=== PATIENT | male | born 1975 | race Caucasian/White ===

== ENCOUNTER 2016-12-16 09:20 | Emergency (ER) | payer OTHER ==
[~2016-12-16] VITALS: Ht 162.6 cm; Wt 86.5 kg
[2016-12-16 09:25] VITALS: Ht 162.6 cm; Wt 86.5 kg
--- NOTE | 2016-12-16 09:55 | ERD ---
ER Documentation Chief Complaint Date/Time DATE: 12/16/16 Chief Complaint Foreign body sensation right eye HPI The patient is a 41-year-old male who presents the Emergency Department with complaint of foreign body sensation to the right eye. The patient reports while at work on Saturday he was chopping some drywall when some debris flew into his eye. No discomfort at the time, but by the evening was experiencing a pulsating discomfort to the right eye with increased redness area by the next morning he noted increased redness of the eye, with mild photophobia and foreign body sensation and therefore presented to an cup machine operator at [facility] for evaluation. The patient reports that several more bodies noted in his right eye, one which was removed. The patient was then discharged home with a prescription for ciprofloxacin ophthalmic drops, and advised that he needs a repeat appointment in one week to remove the remaining foreign bodies. He denies any visual changes , diplopia, blurred vision or vision loss. Denies fevers, sweats, chills, nausea or vomiting. Denies any ocular discharge. Denies any periorbital swelling or erythema. Denies any pain with eye movement. Denies any restricted days. The patient denies any glasses or contact lens use. He was not wearing any protective lenses while working. The patient notes that he has been using the ciprofloxacin eyedrops as directed. No other complaints at this time. ROS All systems reviewed and are negative except as per history of present illness. Allergies Allergies: Coded Allergies: No Known Allergy (Unverified , 12/16/16) PMhx/Soc Medical and Surgical Hx: pt denies Medical Hx Hx Alcohol Use: No Hx Substance Use: No Hx Tobacco Use: No Physical Exam Vitals Vital Signs Date Time Temp Pulse Resp B/P Pulse Ox O2 Delivery O2 Flow Rate FiO2 12/16/16 09:25 98.1 56 18 132/74 97 Physical Exam GENERAL: Well-developed, well-nourished, male, in no acute distress. HEENT: Head is normocephalic, atraumatic. No scleral pallor or icterus. Pupils equal, round and reactive to light. Extraocular movements intact. No periorbital erythema or edema. No proptosis. No pain with eye movement. No restricted gaze. Negative Nicolasa sign. Normal pupil. Mild right photophobia. Visual acuity: OD 20/15, OS 20/25, OU 20/15. Irritation/mild injection of the right eye. Normal sclera/conjunctiva of left eye. No foreign bodies visualized on lid eversion. Moist mucous membranes. NECK: Supple. RESPIRATORY: Lungs are clear to auscultation bilaterally. Equal breath sounds. Normal expiratory effort. CARDIOVASCULAR: Regular rate and rhythm. S1 and S2 normal. GASTROINTESTINAL: Soft. Nondistended. BACK: No midline tenderness. EXTREMITIES: No clubbing, cyanosis, or edema. Normal skin perfusion. Moving all extremities. Muscle tone is normal. No focal swelling or erythema. NEUROLOGIC: The patient is alert, awake, and oriented x 3. No focal neurologic deficits. INTEGUMENT: Skin is intact. Warm and dry. PSYCHIATRIC: Cooperative. Appropriate. Results 24 hrs Current Medications Medications (Trade) Dose Ordered Sig/Marco Route PRN Reason Start Time Stop Time Status Last Admin Dose Admin Tetracaine HCl (Tetracaine 0.5% Steri-Unit Pilar) 1 drop ONCE ONCE RIGHT EYE 12/16/16 10:00 12/16/16 10:01 DC Fluorescein Sodium (Yxlaz-R-Yggza) 1 strip ONCE ONCE RIGHT EYE 12/16/16 10:00 12/16/16 10:01 DC Procedures/MDM EMERGENCY DEPARTMENT COURSE: The patient was stable throughout the ED course. Visual acuity performed. Left eye 20/25. Right eye 20/15. Bilateral 20/15. Right eye rinsed with Flaco lens. Then, right eye fluorescein stained, with no evidence of current foreign body, abrasion, laceration, ulceration. On reevaluation, the patient reports no new complaints, significantly decreased discomfort. PROCEDURE: FLUORESCEIN STAINING EYE INDICATION: Foreign body sensation right eye. CONSENT: Consent was obtained from the patient prior to the procedure. Indications, risks, and benefits were explained at length. PROCEDURE SUMMARY: A timeout protocol was performed prior to initiating the procedure. Right eye rinsed with eye wash. 2 gtts of 0.5% Tetracaine placed in right eye. Right eye Fluorescein stained. No corneal abrasions, lacerations, foreign bodies, rust rings seen with black light. The patient tolerated the procedure well without complications. Standard post- procedure care was explained and return precautions were given. MEDICAL DECISION MAKING: This is a 41-year-old male who presents to the Emergency Department with foreign body sensation to the right eye, after some debris flew into it while doing work on a dry wall. The patient had scleral injection of the right eye on physical examination with mild photophobia noted. Vital signs are stable. There is no current evidence of soft tissue injury, conjunctivitis, retained foreign body (none visualized), keratitis, orbital or periorbital cellulitis, hordeolum, ruptured globe, detached retina, chalazion, blepharitis, entropion, dacryocystitis, zoster uveitis, scleritis, corneal abrasion corneal ulceration or any other emergent medical condition. After rest, eye wash with Flaco Lens and administration of tetracaine the patient reports no new complaints and decreased eye pain. Upon my review and interpretation of the patient's presentation, clinical data, and overall ER course, I believe the patient's symptoms are most consistent with foreign body sensation of the right eye. At this time the patient is in stable condition and therefore he can be discharged home with strict return precautions for signs of deteriorating or worsening condition. The patient is instructed to continue using the Ciprofloxacin ophthalmic drops, and follow up with an ophthalmologic specialist for reevaluation and further management within 1-2 or to return to the ER sooner for any new or worsening symptoms. I shared my medical decision making and plan with the patient at length and in great detail, and the patient verbally understands and agrees with the plan for further observation and care as an outpatient. At the time of discharge, all questions were answered. Departure Diagnosis: Primary Impression: Sensation of foreign body in eye Condition: Stable Patient Instructions: Conjunctival Foreign Body, Resolved Referrals: [facility] Additional Instructions: Call your primary care doctor and/or thread spinner TOMORROW for an appointment during the next 1-2 days for reevaluation and further management. See the doctor sooner or return here if your condition worsens before your appointment time. ELSY MCGINNIS PA-C Dec 16, 2016 09:55
[2016-12-16] MEDS ORDERED: FLUORESCEIN STRIP RIGHT EYE ONE (10:00)
[2016-12-16] MEDS ORDERED: TETRACAINE 0.5% 4 ML OPH RIGHT EYE ONE (10:00)
== END 2016-12-16 11:47 | disposition home or self-care (01) ==
LOC: FTE 09:20
DX: H57.8 Other specified disorders of eye and adnexa (principal)
CPT/HCPCS: Z7502; Z7610; 99284

== ENCOUNTER 2017-09-04 13:18 | Emergency (ER) | END 2017-09-04 15:01 | disposition left against medical advice (07) ==

== ENCOUNTER 2017-09-05 01:30 | Inpatient (IN) | END 2017-09-05 19:30 | disposition home or self-care (01) | DRG 395 ==

== ENCOUNTER 2018-01-14 18:57 | Emergency (ER) | END 2018-01-14 23:53 | disposition home or self-care (01) ==